=== PATIENT | female | born 1995 | race Caucasian/White ===

== ENCOUNTER 2025-04-08 11:41 | Emergency (ER) | payer OTHER, SELFPAY ==
[2025-04-08 11:43] VITALS: BP 123/84
[2025-04-08 12:46] VITALS: BP 124/70
[2025-04-08 13:00] VITALS: BP 101/63
[2025-04-08 13:03] LABS: Hematocrit 35.5 % (37.0-47.0); Hemoglobin 12.1 g/dL (12.0-16.0); Mean Corp Hgb Conc. 34.1 g/dL (33.0-37.0); Mean Corpuscular Volume 100.9 fL (81.0-99.0); Nucleated Red Blood Cells % 0 %; Platelet Count 234 10^3/uL (130-400); Red Cell Dist. Width 12.0 % (11.5-14.5)
[2025-04-08 13:19] LABS: ALT (SGPT) 16 U/L (0-35); AST (SGOT) 21 U/L (14-36); Albumin 4.6 g/dl (3.5-5.0); Alkaline Phosphatase 65 U/L (38-126); Blood Urea Nitrogen 8 mg/dl (7-17); Calcium 9.5 mg/dl (8.4-10.2); Carbon Dioxide 24 mmol/L (22-30); Chloride 107 mmol/L (98-107); Glucose 95 mg/dl (70-99); Potassium 4.2 mmol/L (3.5-5.1); Sodium 138 mmol/L (135-145); Total Protein 7.2 g/dl (6.3-8.2); eGFR > 60.00
[2025-04-08 14:00] VITALS: BP 120/92
--- NOTE | 2025-04-08 14:29 | ED.GENMED ---
History of Present Illness
General
Chief Complaint: Cardiac Symptoms
Source: patient and significant other
Time Seen by Provider: 04/08/25 13:36
History of Present Illness
History of Present Illness:
Note:
CHIEF COMPLAINT(S)
Palpitations and anxiety.
HISTORY OF PRESENT ILLNESS
The patient, a 29-year-old female with a known history of Long QT Syndrome, presented to the emergency department with concerns about heart palpitations that have been occurring over the past week. She also reported experiencing anxiety. The patient
noticed the palpitations while walking her dog, with her Apple Watch showing an increasing heart rate that peaked at 150 beats per minute. She expressed concern due to her Long QT Syndrome and decided to come in for evaluation.
The patient is followed by an stacker operator at [facility] for her Long QT Syndrome but was unsure of the exact QTc value. She mentioned using an Apple Watch to monitor her heart rate but did not use its electrocardiogram (ECG) functionalities
at the time of her symptoms.
She also noted increased consumption of tea, approximately six cups a day, which she recognizes contains caffeine, a potential contributing factor.
Her past episodes of Long QT were detected through stress tests performed at [facility], with a family history of Long QT Syndrome present in her mother and paternal grandfather, the latter discovered due to syncopal episodes. Neither the patient nor
her relatives have required defibrillator implantation.
Additionally, the patient takes Atenolol 50 mg once daily and was advised by previous healthcare providers to monitor for arrhythmias.
PAST MEDICAL AND SURGICAL HISTORY
Long QT Syndrome.
CHRONIC MEDICAL CONDITIONS SIGNIFICANTLY AFFECTING CARE
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
EXTERNAL RECORDS REVIEWED
None specifically mentioned. Although historical ECG records and stress tests from [facility] and [place] were discussed, there was no indication that these were reviewed in the current visit.
SOCIAL HISTORY
Increased caffeine consumption noted with intake of six cups of tea per day.
MEDICATIONS
Atenolol 50 mg once daily.
PHYSICAL EXAM
General: Alert, no acute distress.
Skin: Warm, dry.
Head: Normocephalic, atraumatic.
Neck: Supple, trachea midline.
Eye Ears, Nose, Mouth, and Throat: Oral mucosa moist.
Cardiovascular: Normal peripheral perfusion, heart rate regular, no murmur detected, no edema.
Respiratory: Respirations are non-labored.
Gastrointestinal: Abdomen nondistended.
Back: Normal range of motion, Normal alignment.
Musculoskeletal: Normal ROM, normal strength.
Neurological: Alert and oriented to person, place, time, and situation, No focal neurological deficit observed.
Psychiatric: Cooperative, appropriate mood & affect.
PROBLEM LIST
Acute:
- Palpitations
- Anxiety
Chronic:
- Long QT Syndrome
PLAN
- Reassurance provided due to QTc of 463 ms, which is within a reasonable range for females.
- Recommendations to utilize the ECG function on the Apple Watch when symptoms occur, to provide documented evidence for review.
- Suggested follow-up with research director for possible Holter monitor fitting to capture events over a few days.
- Discuss avoidance of excessive caffeine and monitoring intake moving forward.
- Review thyroid function and electrolyte levels, emphasizing these as common contributors to arrhythmias, once results are available.
DIFFERENTIAL DIAGNOSIS
The Differential Diagnosis includes, in no particular order and is not limited to:
- Supraventricular tachycardia
- Atrial fibrillation
- Atrial flutter
- Premature ventricular contractions
- Anxiety disorder
- Excessive caffeine consumption
- Hyperthyroidism
- Electrolyte imbalances
- Panic disorder
- Cardiac arrhythmias associated with Long QT Syndrome
EKG
My independent EKG interpretation is:
- Time of EKG: Not specified
- Rhythm: Not specified
- Heart Rate: Not specified
- MD Interval: Not specified
- QRS Duration: Not specified
- QT Interval: QTC 463
- Stanton: Normal
- Abnormalities: No ischemic changes observed
Disposition:
SUMMARY OF ENCOUNTER
The patient, a 29-year-old female with a history of Long QT Syndrome, presented to the emergency department reporting heart palpitations, which she monitored using her Apple Watch. The heart rate subsequently stabilized in the 60s. No arrhythmias
were suspected during this visit. Her palpitations and heart rate changes were of concern due to her pre-existing condition. The patient has been advised to follow up with cardiology for a possible Holter monitor evaluation.
PLAN
- Reassured the patient that her current heart rate of 60s is stable and does not indicate an arrhythmia.
- Recommended the use of the Apple Watch ECG feature during future symptoms for better documentation.
- Encourage follow-up with her research director to consider fitting a Holter monitor for continuous heart rate evaluation.
- Review thyroid function and electrolyte levels when the results are available to rule out other potential causes for her symptoms.
INDEPENDENT REVIEW OF LABS AND INTERPRETATION OF TESTS
My independent review indicates that labs are remarkable. Thyroid-Stimulating Hormone (TSH) test results are pending.
PATIENT EDUCATION AND COUNSELING
Discussed with the patient the importance of monitoring symptoms using available technology like the Apple Watch and consulting her research director promptly. Educated her on the potential effects of caffeine on heart rate and advised moderation.
Reinforced the plan to evaluate electrolytes and thyroid function.
FOLLOW-UP INSTRUCTIONS
- Schedule an appointment with her research director for possible Holter monitor evaluation.
- Monitor symptoms and utilize the ECG feature on her Apple Watch, especially if experiencing palpitations again.
- Await the pending lab results from the thyroid function tests and electrolytes.
MEDICAL DECISION MAKING
- Number and Complexity of Problems Addressed: Chronic conditions affecting care [Long QT Syndrome]
- Differential Diagnosis List: Supraventricular tachycardia, Atrial fibrillation, Atrial flutter, Premature ventricular contractions, Anxiety disorder, Excessive caffeine consumption, Hyperthyroidism, Electrolyte imbalances, Panic disorder, Cardiac
arrhythmias associated with Long QT Syndrome.
- Data:
Category 1: Tests and documents reviewed included lab work with TSH pending.
Category 2: My independent interpretation of the current heart rate and condition�60s, no evidence of arrhythmia.
-Risk: Consideration of Admission/Observation: Escalation of care, including admission/observation, was considered given the complexity and risk of the patients presenting complaint, exam findings, and underlying comorbidities. However, ultimately,
I feel the patient is safe for outpatient management with close follow-up. Reasoning: Work-up reassuring, does not reveal any acute life/organ-threatening processes, patients symptoms well-controlled upon reevaluation, reexamination is reassuring,
vitals are stable, patient agreeable with discharge, and reliable for follow-up.
DIAGNOSIS
- Palpitations, R00.2
- Anxiety, F41.9
- Long QT Syndrome, I45.81
Phy Exam
Physical Exam
Physical Exam:
.
Course
Orders/Labs/Results
Orders:
Orders
04/08/25 11:45
EKG [Electrocardiogram (*1)] Urgent
Reason for Study: Palpitations
EKG- Treatment ONCE
04/08/25 12:51
Complete Blood Count/With Diff Urgent
Comprehensive Metabolic Panel Urgent
TSH Reflex To Free T4 Urgent
Comment: ADDED ON
04/08/25 13:38
Add On- LAB Urgent
Tests Added?: TSH with reflex free T4
Abnormal Lab Results
04/08/25
12:51
RBC 3.52 L 10^6/uL
(4.20-5.40)
Hct 35.5 L %
(37.0-47.0)
MCV 100.9 H fL
(81.0-99.0)
MCH 34.4 H pg
(27.0-31.0)
MPV 10.7 H fL
(7.4-10.4)
Absolute Neuts (auto) 6.6 H 10^3/uL
(1.4-6.5)
Neutrophils % 76.6 H %
(42.2-75.2)
Lymphocytes % 15.7 L %
(20.5-51.1)
04/08/25 12:51
04/08/25 12:51
Vital Signs
Initial and Last Documented VS:
Initial Vital Signs
Temp Pulse Resp BP Pulse Ox
98.3 F 61 18 123/84 100
04/08/25 11:43 04/08/25 11:43 04/08/25 11:43 04/08/25 11:43 04/08/25 11:43
Last Documented Vital Signs
Temp Pulse Resp BP Pulse Ox
98.3 F 65 15 120/92 100
04/08/25 11:43 04/08/25 14:30 04/08/25 14:30 04/08/25 14:00 04/08/25 14:33
*Pulse Oximetry
SaO2: 100
Oxygen Mode of Delivery: Room air
Patient hypoxic: no
*Critical Care Note
Total Time (30-74mins, 75-104mins- exclusive of procedures): Not Applicable
ED Attending Note
-
Portions of this chart may have been created with voice recognition software.� Occasional wrong word or��sound alike� substitutions may have occurred due to the inherent limitations of voice recognition software.
Discharge Plan
Departure
Patient Disposition: Home (Routine Discharge)
Date of Disposition: 04/08/25
Time of Disposition: 14:31
Patient with high blood pressure during this ER visit?: No
Discharge Problem:
Palpitations
Instructions: Palpitations
Referrals:
Brii Bruce MD [Family Provider, Internal Medicine]
Activity Restrictions/Additional Instructions:
Please see your doctor or research director in the next 1 week for follow-up and reevaluation as you may want to consider Holter monitor as discussed. Return immediately for worsening symptoms, chest pain, shortness of breath or any other concerns
Interventions
Interventions:
*Risk Screen - Suicide Last Done: 04/08/25 11:44
*General Assessment Last Done: 04/08/25 11:44
*Neglect/Abuse Screening Last Done: 04/08/25 11:44
*ED- Fall Risk Assessment Last Done: 04/08/25 12:44
*ED COVID-19 Vaccine History Last Done: 04/08/25 11:44
*Nursing Disposition Last Done: 04/08/25 14:46
ED- Pulmonary Assessment Last Done: 04/08/25 14:00
ED- Cardiac Assessment Last Done: 04/08/25 14:00
Discharge Date and Time
Discharge Date/Time: 04/08/25 14:56
Print Language: [facility] [place]
== END 2025-04-08 14:56 | disposition home or self-care (01) ==
LOC: EMR 11:41
PROVIDERS: EMERGENCY PHYSICIAN Emergency Medicine; FAMILY PHYSICIAN Student in an Organized Health Care Education/Training Program
DX: R00.2 Palpitations (principal); I45.81 Long QT syndrome; Z82.49 Family history of ischemic heart disease and other diseases of the circulatory system
CPT/HCPCS: 99284; 80053; 84443; 85025; 93005